=== PATIENT | female | born 1950 | race Caucasian/White ===

== ENCOUNTER 2018-09-27 14:12 | Emergency (ER) | payer OTHER ==
[~2018-09-27] VITALS: Ht 170.2 cm; Wt 110.0 kg
[~2018-09-27 14:12] MED LIST: ASPI325EC PO; CEPH500 PO; HYDACE5 PO; IBUP800 PO; OXYACE5T PO; SULTRIDS PO
== END 2018-09-27 15:52 | disposition home or self-care (01) ==
LOC: ER 14:12
DX: M79.661 Pain in right lower leg (principal); F17.210 Nicotine dependence, cigarettes, uncomplicated; Z88.0 Allergy status to penicillin
CPT/HCPCS: 93971; 99283

== ENCOUNTER 2019-01-27 15:06 | Emergency (ER) | payer OTHER ==
[~2019-01-27] VITALS: Ht 170.2 cm; Wt 122.5 kg
== END 2019-01-27 15:32 | disposition home or self-care (01) ==
LOC: ER 15:06
DX: S30.861A Insect bite (nonvenomous) of abdominal wall, initial encounter (principal); W57.XXXA Bitten or stung by nonvenomous insect and other nonvenomous arthropods, initial encounter; Z88.0 Allergy status to penicillin; F17.210 Nicotine dependence, cigarettes, uncomplicated
CPT/HCPCS: 10120; 99282-25

== ENCOUNTER → 2019-02-10 | Outpatient (CLI) | payer OTHER ==
[2019-02-11 14:05] LABS: Stool Occult Bld Immuno 1 Negative (NEGATIVE)
== END | disposition home or self-care (01) ==
LOC: LAB 06:30 → LAB SHORT 06:30 → LAB FUT 02-06 11:55
PROVIDERS: Family Medicine
DX: Z12.11 Encounter for screening for malignant neoplasm of colon (principal); E78.5 Hyperlipidemia, unspecified; R79.9 Abnormal finding of blood chemistry, unspecified
CPT/HCPCS: G0328

== ENCOUNTER 2019-07-08 17:11 | Observation (INO) | payer OTHER ==
[~2019-07-08] VITALS: Ht 170.2 cm; Wt 82.5 kg
[2019-07-09 05:07] LABS: Hematocrit 38.9 % (33.0-51.0); Hemoglobin 12.6 g/dL (11.5-16.0); Mean Corpuscular HGB Conc 32.4 g/dL (31.5-36.5); Mean Corpuscular Volume 93 fL (80-100); Mean Platelet Volume 10.1 fL (9.1-12.4); Platelet Count 242 K/mm3 (150-400); RDW Coefficient Variation 13.2 % (11.7-14.2); RDW Standard Deviation 45.1 fL (35.1-46.3); White Blood Cell Count 4.87 K/mm3 (4.00-11.30)
[2019-07-09 05:23] LABS: Anion Gap 6 mmol/L (6-16); Blood Urea Nitrogen 9 mg/dL (8-24); Bun/Creatinine Ratio 14.8 (12.0-20.0); CO2, Blood 27 mmol/L (21-32); Calcium, Blood 8.4 mg/dL (8.5-10.1); Chloride, Blood 111 mmol/L (98-108); Creatinine, Blood 0.61 mg/dL (0.40-1.00); Glomerular Filtration Rate >60 (60-); Glucose, Blood 91 mg/dL (70-99); Potassium, Blood 4.1 mmol/L (3.5-5.5); Sodium, Blood 144 mmol/L (136-145)
--- NOTE | 2019-07-09 05:52 | NUR ---
SHIFT SUMMARY: TAMIKA WAS ADMITTED FROM THE ER LAST NIGHT FOR DIVERTICULITIS WITH A POSSIBLE PERFORATION, DR. CROSS HAS BEEN CONSULTED. SHE IS A&OX4, DENIES ANY N/V AT THIS TIME. SHE HAS A 20G IN HER LEFT FOREARM AND POWERGLIDE IN HER RIGHT UPPER ARM. SHE IS NPO. SHE IS INDEPENDENT IN THE ROOM AND FACILITY, GOING OUTSIDE TO SMOKE. SHE USES HER CALL LIGHT APPROPRIATELY. SHE IS CONTINENT OF BLADDER AND BOWEL. NO ADVERSE REACTIONS TO IV ABX. REPORTS SHE HAS NOT EATEN IN THREE DAYS AND THAT HER LAST BM WAS 07/05/19. SHE IS LYING IN BED WITH HER CALL LIGHT IN REACH.
--- NOTE | 2019-07-09 09:16 | NUR ---
DR CROSS HERE. REPORTS PT MAY ADVANCE TO C.L. DIET.
--- NOTE | 2019-07-09 17:45 | NUR ---
SHIFT SUMMARY PT UP IND WITH STEADY GAIT. PT FAMILY/FRIENDS IN/OUT OF ROOM TODAY. PT TOLERATING SOME C.L. WITHOUT DIFF. PT HAD BM AFTER COFFEE THIS AM AFTER DR CROSS WAS HERE. PT NOT NEEDED ANY PAIN MEDICATION TODAY. PT CONT TO REFUSE PAS IS UP WALKING. PT BEEN ASSISTED WITH ADL'S PRN. INOCENCIA FAN TO SEE PT TODAY.
--- NOTE | 2019-07-10 04:13 | NUR ---
Patient A/Ox4. VSS. Ambulating in hallways independently. No complaints of pain or N/V. Patient tolerating Liquids. Patient stated she feels like she is getting better.
[2019-07-10 04:55] LABS: BASOPHILS ABSOLUTE AUTO 0.03 K/mm3 (0.00-0.23); BASOPHILS PERCENT AUTO 1 % (0-2); EOSINOPHILS ABSOLUTE AUTO 0.19 K/mm3 (0.00-0.68); EOSINOPHILS PERCENT AUTO 4 % (0-6); Hematocrit 40.6 % (33.0-51.0); Hemoglobin 13.1 g/dL (11.5-16.0); IMMATURE GRAN ABSOLUTE AUTO 0.02 K/mm3 (0.00-0.10); IMMATURE GRAN PERCENT AUTO 0 % (0-1); LYMPHOCYTES ABSOLUTE AUTO 2.49 K/mm3 (0.84-5.20); LYMPHOCYTES PERCENT AUTO 46 % (21-46); MONOCYTES ABSOLUTE AUTO 0.52 K/mm3 (0.16-1.47); MONOCYTES PERCENT AUTO 10 % (4-13); Mean Corpuscular HGB Conc 32.3 g/dL (31.5-36.5); Mean Corpuscular Volume 93 fL (80-100); Mean Platelet Volume 10.2 fL (9.1-12.4); NEUTROPHILS ABSOLUTE AUTO 2.18 K/mm3 (1.96-9.15); NEUTROPHILS PERCENT AUTO 40 % (41-73); Platelet Count 241 K/mm3 (150-400); RDW Coefficient Variation 13.3 % (11.7-14.2); RDW Standard Deviation 45.8 fL (35.1-46.3); Red Blood Cell Count 4.37 M/mm3 (3.80-5.20); White Blood Cell Count 5.43 K/mm3 (4.00-11.30)
[2019-07-10] MEDS ORDERED: MIRALAX17 GM PO (11:19)
[2019-07-10] MEDS ORDERED: METR500 PO (11:20)
[2019-07-10] MEDS ORDERED: CIPR500 PO (11:21)
[2019-07-10] MEDS ORDERED: Culturelle1 CAP PO (11:21)
[2019-07-10] MEDS ORDERED: DOCU100 PO (11:22)
[2019-07-10] MEDS ORDERED: ACET325 PO (11:23)
--- NOTE | 2019-07-10 12:05 | NUR ---
DISCHARGE PT PROVIDED WITH WRITTEN AND VERBAL DISCHARGE INSTRUCTIONS. SHE REPORTED UNDERSTANDING. PT REQUESTED TO AMBULATE OUT. SHE LEFT AT 1200.
== END 2019-07-10 12:04 | disposition home or self-care (01) ==
LOC: ER 17:11 → SURS 17:12
PROVIDERS: Nurse Practitioner Acute Care; Surgery; ADMIT Internal Medicine
DX: K57.20 Diverticulitis of large intestine with perforation and abscess without bleeding (principal); K59.00 Constipation, unspecified; E78.5 Hyperlipidemia, unspecified; F17.210 Nicotine dependence, cigarettes, uncomplicated; R11.0 Nausea; Z88.0 Allergy status to penicillin; Z79.899 Other long term (current) drug therapy
CPT/HCPCS: 36415; 80048; 85025; 85027; 99285-25; J0744; J3480; J7050; J7120

== ENCOUNTER 2019-09-19 13:39 | Day surgery (SDC) | payer OTHER ==
[~2019-09-19] VITALS: Ht 162.6 cm; Wt 85.6 kg
[~2019-09-19 13:39] MED LIST changes: +ACET325 PO; +CIPR500 PO; +Culturelle1 CAP PO; +DOCU100 PO; +METR500 PO; +MIRALAX17 GM PO
== END 2019-09-19 15:30 | disposition home or self-care (01) ==
LOC: ORSCSDS 13:39
PROVIDERS: Surgery
PROC: 0DJD8ZZ Inspection of Lower Intestinal Tract, Via Natural or Artificial Opening Endoscopic (ICD-10-PCS; principal; 2019-09-19 15:00)
DX: Z87.19 Personal history of other diseases of the digestive system (principal); K57.30 Diverticulosis of large intestine without perforation or abscess without bleeding; E78.5 Hyperlipidemia, unspecified; F17.210 Nicotine dependence, cigarettes, uncomplicated; E66.9 Obesity, unspecified; Z68.32 Body mass index [BMI] 32.0-32.9, adult
CPT/HCPCS: J2704; J7120